=== PATIENT | male | born 1955 | race Caucasian/White ===

== ENCOUNTER → 2016-12-27 | Outpatient (CLI) | payer OTHER | END | disposition home or self-care (01) | LOC: CFH 10:25 | PROVIDERS: ATTEND Internal Medicine Hematology & Oncology | DX: Z13.820 Encounter for screening for osteoporosis (principal); C61 Malignant neoplasm of prostate; M85.88 Other specified disorders of bone density and structure, other site | CPT/HCPCS: 77080 ==

== ENCOUNTER → 2017-03-26 | Outpatient (CLI) | payer OTHER ==
[~2017-03-26] MED LIST: OMNIPAQUE 350 MG/ML, 100ML BOTTLE ONE
== END | disposition home or self-care (01) ==
LOC: CFH 10:18
PROVIDERS: ATTEND Internal Medicine Hematology & Oncology
DX: Z51.11 Encounter for antineoplastic chemotherapy (principal); C61 Malignant neoplasm of prostate; D70.1 Agranulocytosis secondary to cancer chemotherapy; K76.89 Other specified diseases of liver
CPT/HCPCS: 71260; 74177; Q9967

== ENCOUNTER → 2017-03-26 | Outpatient (CLI) | payer OTHER | END | disposition home or self-care (01) | LOC: PETCFH 10:19 | PROVIDERS: ATTEND Internal Medicine Hematology & Oncology | DX: C61 Malignant neoplasm of prostate (principal); D70.1 Agranulocytosis secondary to cancer chemotherapy | CPT/HCPCS: 78306; A9503 ==